=== PATIENT | female | born 1955 | race Caucasian/White ===

== ENCOUNTER 2022-03-06 23:00 | Emergency (ER) | payer MEDICARE, OTHER | END 2022-03-07 00:50 | disposition home or self-care (01) | LOC: JD.ED 23:00 | DX: S61.032A Puncture wound without foreign body of left thumb without damage to nail, initial encounter (principal); I25.10 Atherosclerotic heart disease of native coronary artery without angina pectoris; E78.00 Pure hypercholesterolemia, unspecified; I10 Essential (primary) hypertension; I25.2 Old myocardial infarction; Z86.73 Personal history of transient ischemic attack (TIA), and cerebral infarction without residual deficits; Z88.8 Allergy status to other drugs, medicaments and biological substances; Z86.16 Personal history of COVID-19; W26.0XXA Contact with knife, initial encounter | CPT/HCPCS: 12001; 12011; 99282 ==